=== PATIENT | female | born 1960 | race Caucasian/White ===

== ENCOUNTER 2023-10-01 03:58 | Day surgery (SDC) | payer BC ==
[2023-09-26 16:24] VITALS: BMI 24.0
[2023-10-01] MEDS ORDERED: MIDAZOLAM HCL 2 MG/2 ML SINGLE DOSE VIAL ONE (07:21)
[2023-10-01] MEDS ORDERED: FENTANYL CITRATE/PF 50 MCG/ML VIAL ONE (07:50)
[2023-10-01 08:24] VITALS: RESP 18
[2023-10-01 10:10] VITALS: BP 116/70; PULSE 71; TEMP 98.4
== END 2023-10-01 10:36 | disposition home or self-care (01) ==
LOC: JASU-SURG 03:58
PROVIDERS: ATTEND Urology
PROC: 0TC33ZZ Extirpation of Matter from Right Kidney Pelvis, Percutaneous Approach (ICD-10-PCS; principal; 2023-10-01 07:30)
DX: N20.0 Calculus of kidney (principal)